=== PATIENT | male | born 1995 | race African-American/Black ===

== ENCOUNTER 2019-06-12 17:23 | Emergency (ER) | payer OTHER, BC ==
[2019-06-12 17:38] VITALS: BP 138/70
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
== END 2019-06-12 18:16 | disposition home or self-care (01) ==
LOC: ED 17:23
DX: S39.012A Strain of muscle, fascia and tendon of lower back, initial encounter (principal); V49.49XA Driver injured in collision with other motor vehicles in traffic accident, initial encounter
CPT/HCPCS: 99282